=== PATIENT | male | born 1945 | race Caucasian/White ===

== ENCOUNTER 2018-06-09 20:48 | Emergency (ER) | payer OTHER ==
[~2018-06-09] VITALS: Ht 175.3 cm; Wt 83.9 kg
[2018-06-09 20:57] VITALS: BP 123/75
[2018-06-09 21:03] VITALS: BP 123/75
--- NOTE | 2018-06-09 21:03 | NUR ---
TO LOBBY A/W BED, AMBULATORY, VSS ERMD NOTED
--- NOTE | 2018-06-09 21:53 | NUR ---
PT TAKEN TO RAD FROM LOBBY
--- NOTE | 2018-06-09 22:05 | NUR ---
PT RETURN TO [facility]
--- NOTE | 2018-06-09 22:27 | NUR ---
PT TAKEN TO BED 8
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
--- NOTE | 2018-06-09 22:41 | NUR ---
Dr. Henley evaluating patient at bedside.
[2018-06-09] MEDS ORDERED: ACETAMINOPHEN EXTRA STRENGTH 500 MG TAB PO ONE (22:50)
--- NOTE | 2018-06-09 23:20 | NUR ---
Patient discharged with v/s stable. Written and verbal after care instructions given and explained. Patient verbalized understanding. Ambulatory with steady gait. All questions addressed prior to discharge. Advised to follow up with PMD.
== END 2018-06-09 23:20 | disposition home or self-care (01) ==
LOC: MED 20:48
DX: S39.012A Strain of muscle, fascia and tendon of lower back, initial encounter (principal); S16.1XXA Strain of muscle, fascia and tendon at neck level, initial encounter; I10 Essential (primary) hypertension; V89.2XXA Person injured in unspecified motor-vehicle accident, traffic, initial encounter; Y93.89 Activity, other specified; Y92.89 Other specified places as the place of occurrence of the external cause; Y99.8 Other external cause status
CPT/HCPCS: 72100; 99284

== ENCOUNTER 2019-12-03 13:46 | Inpatient (IN) | payer OTHER ==
[~2019-12-03] VITALS: Ht 180.3 cm; Wt 83.5 kg
[2019-12-03 13:52] VITALS: BP 151/80
[2019-12-03] MEDS ORDERED: ACETAMINOPHEN EXTRA STRENGTH 500 MG TAB PO ONE ×2 (13:55)
[2019-12-03] MEDS ORDERED: NACL 0.9% 1,000 ML IV ONE ×2 (13:55)
--- NOTE | 2019-12-03 14:35 | NUR ---
BIB [facility] W/ SON IN LAW C/O GEN WEAKNESS, COUGH, ABDOMINAL PAIN X 3 DAYS. SEEN BY PMD YESTERDAY FOR CXR---NO RESULT YET. HX: BPH, DM
[2019-12-03] MEDS ORDERED: DOXYCYCLINE 100 MG CAP PO SCH (14:50)
[2019-12-03] MEDS ORDERED: cefTRIAXone 2,000 MG in DEXTROSE 5% 100 ML IV ONE (14:50)
[2019-12-03 14:59] LABS: BASOPHILS % (AUTO) 0.3 % (0.0-2.0); EOSINOPHILS % (AUTO) 0.1 % (0.0-4.0); HEMATOCRIT 44.6 % (36-52); HEMOGLOBIN 14.9 g/dL (12.0-18.0); LYMPHOCYTES # (AUTO) 0.5 K/uL (2.0-11.5); LYMPHOCYTES % (AUTO) 5.3 % (20.5-51.1); MEAN CORPUSCULAR HEMOGLOBIN 30 pg (27-31); MEAN CORPUSCULAR HGB CONC 33 g/dL (33-37); MEAN CORPUSCULAR VOLUME 91.2 fL (80-94); MONOCYTES # (AUTO) 0.6 K/uL (0.8-1.0); MONOCYTES % (AUTO) 7.2 % (1.7-9.3); NEUTROPHILS # (AUTO) 7.9 K/uL (1.8-7.7); NEUTROPHILS % (AUTO) 87.1 % (42.2-75.2); PLATELET COUNT (AUTO) 276 K/uL (140-450); RED BLOOD CELL COUNT(AUTO) 4.89 MIL/uL (4.20-6.10); RED CELL DISTRIBUTION WIDTH 13.2 % (11.6-13.7); WHITE BLOOD COUNT (AUTO) 9.1 K/uL (4.8-10.8)
[2019-12-03] MEDS ORDERED: cefTRIAXone 2,000 MG VIAL ONE (15:07)
[2019-12-03 15:33] LABS: ALBUMIN 3.1 g/dL (3.4-5.0); ANION GAP 12.9 (8-16); ASPARTATE AMINOTRANSFERASE 22 U/L (15-37); CARBON DIOXIDE 25.4 mmol/L (21-32); CHLORIDE 95 mmol/L (98-107); CREATININE 0.9 mg/dL (0.6-1.3); GLUCOSE 157 mg/dL (74-106); POTASSIUM 3.3 mmol/L (3.5-5.1); SODIUM SERUM 130 mmol/L (136-145); TOTAL BILIRUBIN 0.7 mg/dL (0.0-1.0); UREA NITROGEN, BLOOD 14 mg/dL (7-18)
[2019-12-03] MEDS ORDERED: OSELTAMIVIR PHOSPHATE 75 MG CAP PO SCH (17:18)
[2019-12-03] MEDS ORDERED: ALBUTEROL 0.083% 2.5 MG/3 ML NEBU INH PRN (17:20)
[2019-12-03] MEDS ORDERED: HYDROcodone/APAP 5/325 MG 1 TAB TAB PO PRN ×2 (17:20)
[2019-12-03] MEDS ORDERED: ONDANSETRON 4 MG/2 ML VIAL IVP PRN (17:20)
[2019-12-03] MEDS ORDERED: OSELTAMIVIR PHOSPHATE 75 MG CAP PO ONE (17:20)
[2019-12-03] MEDS ORDERED: POTASSIUM CHLORIDE 10 MEQ TABER PO ONE (17:20)
[2019-12-03] MEDS ORDERED: MAG SULF 2000 MG/WATER PREMIX 50 ML IV ONE (17:40)
--- NOTE | 2019-12-03 17:45 | NUR ---
PT ARRIVED ON THE UNIT WITH 2 ER NURSES. PT IS AOX4. FAMILY ACCOMPANYING PT. PT HAS STRESS INCONTINENCE. PT HAS WET HIMSELF. PT HAS NC 2L O2. IV ON L AC 18G SL. PT IS COUGHING, DRY HACKING. PT HAS GENERALIZED WEAKNESS. TOOK HIM A LONG TIME TO TRANSFER FROM [facility] TO BED. POSITIVE FOR INFLUENZA A AND PNA. SKIN INTACT. WILL ENDORSE ADMISSION TO THE CITY TREASURER NURSE.
--- NOTE | 2019-12-03 17:55 | NUR ---
Patient will be admitted to care of Dr Rand. Admited to tele room 114. Belongings list completed. Report to WANDA Whaley.
[2019-12-03 18:00] VITALS: BP 120/69
[2019-12-03] MEDS: NACL 0.9% 1,000 ML IV SCH (18:43)
--- NOTE | 2019-12-03 19:10 | NUR ---
ENDORSED PT AND ADMISSION TO THE CITY SANITARIAN NURSE. HUNG THE IVF AND THE MAG. MRSA DONE. SPUTUM CUP GIVEN TO PT TO GIVE SAMPLE. AWAITING SAMPLE. PT IN STABLE CONDITION.
--- NOTE | 2019-12-03 19:15 | NUR ---
RECEIVED PT FROM MINOO MUÑOZ PT TURKS AND [place] ISLANDER SPEAKER AAOX4 AMBULATES WITH DIRECTOR APPAREL IV O;N LEFT AC INFUSING WELL PT WITH PRODUCTIVE COUGH, ON TELEMETRY SR INITIAL ASSESSMENT DONE
[2019-12-03 20:18] VITALS: BP 148/75
[2019-12-03] MEDS: OSELTAMIVIR PHOSPHATE 75 MG CAP PO SCH (20:46)
[2019-12-03] MEDS ORDERED: DEXTROSE 50% 50 ML SYR IVP PRN (21:00)
[2019-12-03] MEDS: BLOOD GLUCOSE MONITORING 1 DEV DEV FS SCH (21:22)
--- NOTE | 2019-12-03 21:30 | NUR ---
BLOOD SUGAR TEST 161 COVERAGE WITH 2 UNITS SUBQ HUMALOG FOLLOW PROTOCOL
[2019-12-03] MEDS: INSULIN LISPRO SLIDING SCALE 100 UNITS/ML VIAL SUBQ PRN (21:35)
--- NOTE | 2019-12-03 23:53 | NUR ---
BREATHING TS GIVEN ORDER; AND PT NOW GETTING SLEEP
[2019-12-04] VITALS: BP 147/91
[2019-12-04] MEDS: ACETAMINOPHEN 325 MG TAB PO PRN ×2 (00:30→20:36)
[2019-12-04] MEDS ORDERED: TAMS0.4C96 PO (02:37)
[2019-12-04] MEDS ORDERED: METF500T PO (02:53)
[2019-12-04] MEDS ORDERED: ASPI-1884 PO (02:53)
[2019-12-04] MEDS ORDERED: DUTASTERIDE PO (02:53)
[2019-12-04] MEDS ORDERED: OMEP20TC12 PO (02:53)
[2019-12-04] MEDS ORDERED: ORE25 PO (02:56)
[2019-12-04] MEDS ORDERED: LOSA25TA43 PO (02:56)
--- NOTE | 2019-12-04 03:26 | NUR ---
PT C/O SEVERE PARIKH. ADMINISTERED PRN PO PAIN MEDICATION ORDERED. PT TOLERATED IT WELL. PT TEACHING GIVEN, PT VERBALIZED UNDERSTANDING. WILL ENDORSE TO PRIMARY RN.
[2019-12-04 04:00] VITALS: BP 125/65
[2019-12-04] MEDS ORDERED: SYN.075 PO (04:22)
[2019-12-04] MEDS ORDERED: DUTASTERIDE 0.5 MG PO PRN (04:30)
[2019-12-04] MEDS ORDERED: NON-FORMULARY ITEM (Omeprazole (Omeprazole) 1 TAB) PO PRN (04:30)
[2019-12-04] MEDS ORDERED: HYDROCHLOROTHIAZIDE 25 MG TAB PO PRN (04:30)
--- NOTE | 2019-12-04 04:46 | NUR ---
SPONGE BATH GIVEN LINEN CHANGED ON TELE SR DENIES ANY PAIN,GETTING SLEEP
[2019-12-04] MEDS ORDERED: LEVOTHYROXINE 0.075 MG TAB ONE (05:21)
[2019-12-04] MEDS: NACL 0.9% 1,000 ML IV SCH ×2 (05:48→12:15)
[2019-12-04] MEDS: PANTOPRAZOLE 40 MG TABEC PO SCH (06:29)
[2019-12-04] MEDS ORDERED: metFORMIN 500 MG TAB PO SCH ×2 (06:30)
[2019-12-04] MEDS: LEVOTHYROXINE 0.075 MG TAB PO SCH (06:33)
[2019-12-04] MEDS: BLOOD GLUCOSE MONITORING 1 DEV DEV FS SCH ×4 (06:33→20:34)
[2019-12-04] MEDS: INSULIN LISPRO SLIDING SCALE 100 UNITS/ML VIAL SUBQ PRN ×3 (06:35→16:37)
--- NOTE | 2019-12-04 07:00 | NUR ---
PT WILL BE ENDORSED TO DAY SHIFT NURSE FOR CONTINUE OF CARE
--- NOTE | 2019-12-04 07:16 | NUR ---
RECEIVED BEDSIDE SHIFT REPORT FROM [employer] SPECIALIST NURSE FOR CONTINUATION OF CARE.
[2019-12-04 08:00] VITALS: BP 117/65
--- NOTE | 2019-12-04 08:24 | NUR ---
PATIENT HAS BEEN SCREENED AND CATEGORIZED MODERATE NUTRITION RISK. PATIENT WILL BE SEEN WITHIN 3-5 DAYS OF ADMISSION. 12/06/19 12/08/[address]
[2019-12-04] MEDS: ENOXAPARIN 40 MG/0.4 ML SYR SUBQ SCH (08:28)
[2019-12-04] MEDS: TAMSULOSIN 0.4 MG CAP PO SCH (08:30)
[2019-12-04] MEDS: OSELTAMIVIR PHOSPHATE 75 MG CAP PO SCH ×2 (08:31→20:35)
[2019-12-04] MEDS: ASPIRIN 81 MG TAB.CHEW PO SCH (08:31)
[2019-12-04] MEDS: LOSARTAN 25 MG TAB PO SCH (08:31)
--- NOTE | 2019-12-04 10:00 | NUR ---
PATIENT IS RESTING IN BED, PRODUCTIVE COUGH AND A TEMPERATURE OF 100.4. MEDICATIONS TOLERATED WELL, PATIENT REPORTS WANTING A COUGH SUPPRESSANT, MD MADE AWARE. AT BEDSIDE. ALL CONCERNS ADDRESSED AT THIS TIME. WILL CONTINUE TO MONITOR.
--- NOTE | 2019-12-04 11:45 | NUR ---
DC PLANNIN YRS OLD MALE PATIENT WAS ADMITTED FROM HOME WITH A DX OF INFLUENZA A +. PT HAS A HX OF HTN. STARTED ON OXYGEN, BREATHING TREATMENT TAMIFLU AND LEVAQUIN IV ABX PULMO CONSULT DC PLAN TO GO HOME WHEN STABLE CM TO FOLLOW. Addendum: 12/07/19 at 1507 by Veronica Mirza CM DC PLANNING PT HAS AN ORDER FOR HOME O2 O2 SAT STUDY BY RT WITH ROOM AIR IS 90% .PT NO QUALIFIED FOR HOME O2.
[2019-12-04 12:00] VITALS: BP 139/76
--- NOTE | 2019-12-04 13:00 | NUR ---
CODEINE Q6 ORDERED FOR COUGH, CHEST XRAY 2VIEW ORDERED FOR TOMORROW, CONTINUOUS PULSE OX AND CHEST PHYSIOTHERAPY ORDERED PER MD. AT BEDSIDE. BLOOD GLUCOSE COVERED FOR 170 WITH 2 UNITS OF HUMALOG INSULIN. COUGH IS PERSISTENT AND SCANT PRODUCTION OF CLEAR SPUTUM. WILL CONTINUE TO MONITOR.
--- NOTE | 2019-12-04 15:30 | NUR ---
PATIENT RESTING IN BED, ROUNDS MADE FOR SAFETY. CALL LIGHT ON AND WITHIN REACH. PATIENT IS [place]ET[place]ESE SPEAKING. EDUCATED ON THE IMPORTANCE OF REPORTING WORSENING SIGNS OF COUGH OR FEVER POSSIBLE SIGNS OF WORSENING INFECTION. WILL CONTINUE TO MONITOR.
[2019-12-04 16:00] VITALS: BP 110/56
[2019-12-04] MEDS: PROMETH/CODEINE 6.25-10MG/5ML 5 ML UDC PO PRN ×2 (16:25→21:16)
[2019-12-04] MEDS ORDERED: DEXTROSE 50% 50 ML SYR IVP PRN (17:20)
[2019-12-04] MEDS ORDERED: INSULIN LISPRO SLIDING SCALE 100 UNITS/ML VIAL SUBQ PRN (17:20)
[2019-12-04] MEDS ORDERED: LORATADINE 10 MG TAB PO SCH (17:30)
[2019-12-04] MEDS: LEVOFLOXACIN 750 MG/D5W PREMIX 150 ML IV SCH (18:00)
--- NOTE | 2019-12-04 18:19 | NUR ---
DR. CADENA MADE ROUNDS AND REPORTED SCARRING OF THE LUNGS WELL POSSIBLE PNA. LEVAQUIN STARTED PER PROTOCOL. PATIENT IS TOLERATING DINNER, COUGH IS SUPPRESSED WITH PRN MEDICATION. WILL CONTINUE TO MONITOR.
--- NOTE | 2019-12-04 19:20 | NUR ---
BEDSIDE SHIFT REPORT GIVEN TO BRACELET AND BROOCH MAKER NURSE FOR CONTINUATION OF CARE.
--- NOTE | 2019-12-04 19:21 | NUR ---
RECEIVED PT FROM AM SHIFT RNMARTHA. Dave,Dave,O 4, PATIENT IS ON BEDREST, PRODUCTIVE COUGH. PATIENT STATES HE FEELS FEVERISH. WILL CHECK THE TEMP. AT BEDSIDE. WITH Bettie Shore 18 IVF RUNNING AT ORDERED RATE. ALL CONCERNS ADDRESSED AT THIS TIME. WILL CONTINUE TO MONITOR. Addendum: 12/05/19 at 0147 by Bonnie Toussaint RN PLACED ON FALL PRECAUTIONS CALL LIGHT WITHIN REACH. WILL CONTINUE TO MONITOR
[2019-12-04 20:00] VITALS: BP 145/84
--- NOTE | 2019-12-04 20:36 | NUR ---
NOTED TO HAVE TEMP 101. 9 GIVEN TYLENOL PRN. WILL MONITOR
[2019-12-04] MEDS ORDERED: BLOOD GLUCOSE MONITORING 1 DEV DEV FS SCH (21:00)
--- NOTE | 2019-12-04 21:16 | NUR ---
PT COUGHING, RR= 22 O2 SAT 94%,PROMETHAZINE /CODEINE ADMINISTERED
--- NOTE | 2019-12-04 21:17 | NUR ---
PT SEEN AND ASSESSED. PT IS IN NO APPARENT RESPIRATORY DISTRESS AT THIS TIME; HR 93, RR 20, SPO2 OF 97% ON 3L NC, AND A COARSE BREATH SOUNDS. NO INDICATION FOR HHN PRN TX AT THIS TIME. WILL CONTINUE TO MONITOR PT.
--- NOTE | 2019-12-04 22:13 | NUR ---
CHECKED ON PATIENT, COMPLAINING THAT THE CHUX OF PATIENT IS OPEN. EXPLAINED W/ DRAGLINE ENGINEER THAT CHUX IS OPEN AND THAT WE DON'T HAVE DIAPERS. INFORMED HER THAT WE WILL FIND A WAY TO COVER THE PATIENT. PATIENT COMFORTABLE AFTER HELPING HIM.
[2019-12-05] VITALS: BP 126/69
--- NOTE | 2019-12-05 | NUR ---
CHECKED ON PATIENT, PATIENT SAID HE IS OK, TRYING TO GET SOME SLEEP.
--- NOTE | 2019-12-05 01:52 | NUR ---
CHECKED ON PATIENT, PATIENT SLEEPING AT THIS TIME. NO COMPLAINTS
--- NOTE | 2019-12-05 02:30 | NUR ---
PT AWAKE AND COUGHING HARD, CHECKED O1 SAT 92%; CALLED RT, TO CHECK ON PT.
--- NOTE | 2019-12-05 02:44 | NUR ---
XRAY CALLED RE: 2 VIEW OF CHEST. PER BEAUTY PARLOR CLEANER WILL TRY TO DO IT IN THE AM
[2019-12-05] MEDS: PROMETH/CODEINE 6.25-10MG/5ML 5 ML UDC PO PRN ×3 (03:03→17:52)
--- NOTE | 2019-12-05 03:15 | NUR ---
ADMINISTERED PHENERGAN/ CODEINE FOR COUGHING. RT SAID NO NEED FOR BREATHING TX PT IS NOT WHEEZING
[2019-12-05] MEDS: NACL 0.9% 1,000 ML IV SCH (03:23)
[2019-12-05 04:00] VITALS: BP_SYST 140; BP_SYST 153; BP_DIAS 68; BP_DIAS 81
--- NOTE | 2019-12-05 04:34 | NUR ---
PT C/O OF PAIN, GENERALIZED MILD PAIN 3/10. WILL ADMINISTER TYLENOL
[2019-12-05] MEDS: ACETAMINOPHEN 325 MG TAB PO PRN (04:35)
[2019-12-05] MEDS: PANTOPRAZOLE 40 MG TABEC PO SCH (05:51)
[2019-12-05] MEDS: LEVOTHYROXINE 0.075 MG TAB PO SCH (05:51)
[2019-12-05] MEDS: BLOOD GLUCOSE MONITORING 1 DEV DEV FS SCH ×4 (05:56→21:10)
--- NOTE | 2019-12-05 06:52 | NUR ---
PT ASLEEP BUT EASILY AWAKENED, A, O X 4, BEDREST. PT IN STABLE CONDITION AT THIS TIME
[2019-12-05 07:11] LABS: BASOPHILS % (AUTO) 0.6 % (0.0-2.0); EOSINOPHILS % (AUTO) 0.5 % (0.0-4.0); HEMATOCRIT 40.7 % (36-52); HEMOGLOBIN 13.5 g/dL (12.0-18.0); LYMPHOCYTES % (AUTO) 16.4 % (20.5-51.1); MEAN CORPUSCULAR HEMOGLOBIN 30 pg (27-31); MEAN CORPUSCULAR HGB CONC 33 g/dL (33-37); MEAN CORPUSCULAR VOLUME 91.9 fL (80-94); MONOCYTES # (AUTO) 0.7 K/uL (0.8-1.0); NEUTROPHILS # (AUTO) 4.3 K/uL (1.8-7.7); NEUTROPHILS % (AUTO) 70.5 % (42.2-75.2); PLATELET COUNT (AUTO) 229 K/uL (140-450); RED BLOOD CELL COUNT(AUTO) 4.43 MIL/uL (4.20-6.10); RED CELL DISTRIBUTION WIDTH 13.4 % (11.6-13.7); WHITE BLOOD COUNT (AUTO) 6.1 K/uL (4.8-10.8)
--- NOTE | 2019-12-05 07:15 | NUR ---
RECEIVED BEDSIDE SHIFT REPORT FROM SUPERVISOR WET END NURSE FOR CONTINUATION.
[2019-12-05 07:28] LABS: ALBUMIN 2.3 g/dL (3.4-5.0); ANION GAP 12.3 (8-16); ASPARTATE AMINOTRANSFERASE 32 U/L (15-37); CARBON DIOXIDE 25.1 mmol/L (21-32); CHLORIDE 99 mmol/L (98-107); CREATININE 0.8 mg/dL (0.6-1.3); GLUCOSE 109 mg/dL (74-106); POTASSIUM 3.4 mmol/L (3.5-5.1); SODIUM SERUM 133 mmol/L (136-145); TOTAL BILIRUBIN 0.3 mg/dL (0.0-1.0); UREA NITROGEN, BLOOD 12 mg/dL (7-18)
[2019-12-05 08:00] VITALS: BP 136/75
[2019-12-05] MEDS: ALBUTEROL SULFATE/IPRATROPIU 3 ML SOL IH PRN (08:17)
[2019-12-05] MEDS: TAMSULOSIN 0.4 MG CAP PO SCH (09:05)
[2019-12-05] MEDS: ASPIRIN 81 MG TAB.CHEW PO SCH (09:06)
[2019-12-05] MEDS: LOSARTAN 25 MG TAB PO SCH (09:06)
[2019-12-05] MEDS: LORATADINE 10 MG TAB PO SCH (09:06)
[2019-12-05] MEDS: OSELTAMIVIR PHOSPHATE 75 MG CAP PO SCH ×2 (09:06→21:00)
[2019-12-05] MEDS: ENOXAPARIN 40 MG/0.4 ML SYR SUBQ SCH (09:14)
--- NOTE | 2019-12-05 10:00 | NUR ---
MEDICATION TOLERATED WELL, VITALS ARE WNL, PATIENT DENIES PAIN AT THIS TIME. EDUCATED ON THE CALL LIGHT, VERBALIZED UNDERSTANDING. WILL CONTINUE TO MONITOR.
[2019-12-05] MEDS ORDERED: POTASSIUM CHLORIDE 10 MEQ TABER PO SCH (11:20)
[2019-12-05] MEDS: predniSONE 20 MG TAB PO SCH (11:57)
[2019-12-05 12:00] VITALS: BP 140/73
--- NOTE | 2019-12-05 14:00 | NUR ---
BLOOD SUGAR 130, NO COVERAGE NEEDED. PATIENT DENIES PAIN AT THIS TIME. VITALS ARE STABLE. INTERMITTENT COUGHING WITH BLOOD TINGED SPUTUM. WILL CONTINUE TO MONITOR.
[2019-12-05 16:00] VITALS: BP 130/80
--- NOTE | 2019-12-05 17:00 | NUR ---
COVERED FOR 230 BLOOD SUGAR WITH 4 UNITS OF HUMALOG INSULIN. PATIENT TOLERATED WELL. COUGH SUPPRESSANT MEDICATION ADMINISTERED. WILL CONTINUE TO MONITOR.
[2019-12-05] MEDS: LEVOFLOXACIN 750 MG/D5W PREMIX 150 ML IV SCH (17:52)
--- NOTE | 2019-12-05 19:25 | NUR ---
BEDSIDE SHIFT REPORT GIVEN TO DOPE MIXER NURSE FOR CONTINUATION OF CARE.
--- NOTE | 2019-12-05 19:30 | NUR ---
RECEIVED BEDSIDE REPORT FROM DAY RN. PT IS AAO X4. PT ON NC 2L O2 SAT WELL. RESPIRATIONS ARE EQUAL AND UNLABORED. SOME CRACKLES AUDIBLE. PT ON CONTACT ISOLATION FOR POSITIVE INFLUENZA A. DX PNA AND INFLUENZA A. IV ON LAC 18G IV ANTIBIOTICS INFUSING PER ORDERS. POC DISCUSSED. CALL LIGHT IS WITHIN REACH. WILL CONTINUE TO MONITOR.
[2019-12-05 20:00] VITALS: BP 111/71
--- NOTE | 2019-12-05 20:45 | NUR ---
checked up on patient. pt is on 3l nc sat 92%. hr 82. b/s were clear. pt is in no distress. will cont to monitor
--- NOTE | 2019-12-05 21:00 | NUR ---
VSS. [facility] MEDICATIONS GIVEN. BLOOD SUGAR 208 ADMINISTERED INSULIN PER SLIDING SCALE. CALL LIGHT IS WITHIN REACH. WILL CONTINUE TO MONITOR.
[2019-12-05] MEDS: INSULIN LISPRO SLIDING SCALE 100 UNITS/ML VIAL SUBQ PRN (21:06)
--- NOTE | 2019-12-05 22:34 | NUR ---
PT IS RESTING COMFORTABLY IN BED. NO S/S OF DISTRESS. CALL LIGHT IS WITHIN REACH. WILL CONTINUE TO MONITOR.
[2019-12-06] VITALS: BP 131/80
--- NOTE | 2019-12-06 | NUR ---
VITAL SIGNS ARE WITHIN NORMAL LIMITS. NO S/S OF DISTRESS. ALL NEEDS MET AT THIS TIME. CALL LIGHT IS WITHIN REACH.
--- NOTE | 2019-12-06 02:15 | NUR ---
PT IS SLEEPING COMFORTABLY IN BED. CHEST RISE AND FALL NOTED. NO S/S OF DISTRESS. CALL LIGHT IS WITHIN REACH.
[2019-12-06 04:00] VITALS: BP 116/79
--- NOTE | 2019-12-06 04:15 | NUR ---
VITAL SIGNS ARE WITHIN NORMAL LIMITS. ALL SAFETY MEASURES ARE IN PLACE. CALL LIGHT IS WITHIN REACH. WILL CONTINUE TO MONITOR.
[2019-12-06] MEDS: LEVOTHYROXINE 0.075 MG TAB PO SCH (05:48)
[2019-12-06] MEDS: PANTOPRAZOLE 40 MG TABEC PO SCH (05:48)
--- NOTE | 2019-12-06 05:48 | NUR ---
BLOOD SUGAR 94 NO COVERAGE NEEDED. DERIK MEDICATIONS GIVEN PER ORDERS. PT TOLERATED WELL. CALL LIGHT IS WITHIN REACH. WILL CONTINUE TO MONITOR.
[2019-12-06] MEDS: BLOOD GLUCOSE MONITORING 1 DEV DEV FS SCH ×4 (06:22→21:01)
--- NOTE | 2019-12-06 07:20 | NUR ---
GAVE BEDSIDE REPORT TO DAY RN. PT ENDORSED IN STABLE CONDITION.
--- NOTE | 2019-12-06 07:25 | NUR ---
RECEIVED BEDSIDE REPORT FROM NIGHTSHIFT NURSE. PT RESTING IN BED. ABLE TO MAKE NEEDS KNOWN. RESPIRATIONS EVEN AND UNLABORED WITH NO SOB OR RESPIRATORY DISTRESS. SKIN WARM AND DRY TO TOUCH. IV SITE IN LAC 18G IS CLEAN, DRY, AND INTACT. SAFETY MEASURES IN PLACE. WILL CONTINUE TO MONITOR.
[2019-12-06 07:52] LABS: BASOPHILS % (AUTO) 0.3 % (0.0-2.0); EOSINOPHILS % (AUTO) 0.4 % (0.0-4.0); HEMATOCRIT 39.1 % (36-52); HEMOGLOBIN 13.8 g/dL (12.0-18.0); LYMPHOCYTES # (AUTO) 1.3 K/uL (2.0-11.5); LYMPHOCYTES % (AUTO) 33.9 % (20.5-51.1); MEAN CORPUSCULAR HEMOGLOBIN 31 pg (27-31); MEAN CORPUSCULAR HGB CONC 35 g/dL (33-37); MEAN CORPUSCULAR VOLUME 87.3 fL (80-94); MONOCYTES # (AUTO) 0.5 K/uL (0.8-1.0); MONOCYTES % (AUTO) 13.8 % (1.7-9.3); NEUTROPHILS # (AUTO) 1.9 K/uL (1.8-7.7); NEUTROPHILS % (AUTO) 51.6 % (42.2-75.2); PLATELET COUNT (AUTO) 233 K/uL (140-450); RED BLOOD CELL COUNT(AUTO) 4.48 MIL/uL (4.20-6.10); RED CELL DISTRIBUTION WIDTH 13.3 % (11.6-13.7); WHITE BLOOD COUNT (AUTO) 3.7 K/uL (4.8-10.8)
[2019-12-06 08:00] VITALS: BP 140/80
[2019-12-06 08:05] LABS: ALBUMIN 2.4 g/dL (3.4-5.0); ANION GAP 10.8 (8-16); ASPARTATE AMINOTRANSFERASE 30 U/L (15-37); CARBON DIOXIDE 26.8 mmol/L (21-32); CHLORIDE 102 mmol/L (98-107); CREATININE 0.7 mg/dL (0.6-1.3); GLUCOSE 94 mg/dL (74-106); POTASSIUM 3.6 mmol/L (3.5-5.1); SODIUM SERUM 136 mmol/L (136-145); TOTAL BILIRUBIN 0.2 mg/dL (0.0-1.0); UREA NITROGEN, BLOOD 10 mg/dL (7-18)
[2019-12-06] MEDS: ENOXAPARIN 40 MG/0.4 ML SYR SUBQ SCH (08:48)
[2019-12-06] MEDS: TAMSULOSIN 0.4 MG CAP PO SCH (08:50)
[2019-12-06] MEDS: LORATADINE 10 MG TAB PO SCH (08:50)
[2019-12-06] MEDS: ASPIRIN 81 MG TAB.CHEW PO SCH (08:50)
[2019-12-06] MEDS: OSELTAMIVIR PHOSPHATE 75 MG CAP PO SCH ×2 (08:51→20:51)
[2019-12-06] MEDS: predniSONE 20 MG TAB PO SCH ×2 (08:51→11:18)
[2019-12-06] MEDS: LOSARTAN 25 MG TAB PO SCH (08:51)
--- NOTE | 2019-12-06 08:53 | NUR ---
ADMINISTERED SCHED MED PRESCRIBED PER MD ORDER. PT TOLERATED WELL. MEDICATION EDUCATION PERFORMED.PT VERBALIZED UNDERSTANDING
--- NOTE | 2019-12-06 10:02 | NUR ---
PT RESTING IN BED. ABLE TO MAKE NEEDS KNOWN. RESPIRATIONS EVEN AND UNLABORED WITH NO SOB OR RESPIRATORY DISTRESS. SKIN WARM AND DRY TO TOUCH. SAFETY MEASURES IN PLACE. WILL CONTINUE TO MONITOR.
--- NOTE | 2019-12-06 11:20 | NUR ---
ADMINISTERED SCHED MED PRESCRIBED PER MD ORDER. PT TOLERATED WELL. MEDICATION EDUCATION PERFORMED.PT VERBALIZED UNDERSTANDING
--- NOTE | 2019-12-06 11:30 | NUR ---
BLOOD SUGAR OBTAINED AND RESULTED IN 223. INSULIN COVERAGE WILL BE GIVEN WITH LUNCH. SAFETY MEASURES IN PLACE. WILL CONTINUE TO MONITOR.
[2019-12-06 12:00] VITALS: BP 107/54
[2019-12-06] MEDS: INSULIN LISPRO SLIDING SCALE 100 UNITS/ML VIAL SUBQ PRN ×3 (12:26→21:00)
[2019-12-06] MEDS: ACETAMINOPHEN 325 MG TAB PO PRN (12:51)
--- NOTE | 2019-12-06 12:51 | NUR ---
PT CALLED AND COMPLAINED OF A MILD HEADACHE. PRN PAIN MEDICATION ADMINISTERED PRESCRIBED PER MD ORDER. PT TOLERATED WELL. MEDICATION EDUCATION PERFORMED. PT VERBALIZED UNDERSTANDING. SAFETY MEASURES IN PLACE. WILL CONTINUE TO MONITOR
[2019-12-06 16:00] VITALS: BP 116/67
[2019-12-06] MEDS: LEVOFLOXACIN 750 MG/D5W PREMIX 150 ML IV SCH (17:25)
--- NOTE | 2019-12-06 17:36 | NUR ---
ADMINISTERED SCHED MED PRESCRIBED PER MD ORDER. PT TOLERATED WELL. MEDICATION EDUCATION PERFORMED. PT VERBALIZED UNDERSTANDING. SAFETY MEASURES IN PLACE. WILL CONTINUE TO MONITOR
--- NOTE | 2019-12-06 19:25 | NUR ---
ENDORSED TO NIGHTSHIFT NURSE. PT RESTING IN BED. ABLE TO MAKE NEEDS KNOWN. RESPIRATIONS EVEN AND UNLABORED WITH NO SOB OR RESPIRATORY DISTRESS. SKIN WARM AND DRY TO TOUCH. SAFETY MEASURES IN PLACE. PT IS STABLE.
--- NOTE | 2019-12-06 19:26 | NUR ---
RECEIVED BEDSIDE REPORT FROM DAY RN. PT IS AAO X4. PT ON NC 3L O2 SAT WELL. RESPIRATIONS ARE EQUAL AND UNLABORED. SOME CRACKLES AUDIBLE. PT ON DROPLET ISOLATION FOR POSITIVE INFLUENZA A. DX PNA AND INFLUENZA A. IV ON LAC 18G TKO. POC DISCUSSED. CALL LIGHT IS WITHIN REACH. WILL CONTINUE TO MONITOR.
[2019-12-06 20:00] VITALS: BP 116/79
--- NOTE | 2019-12-06 20:51 | NUR ---
VSS. BLOOD SUGAR 228 ADMINISTERED INSULIN PER SLIDING SCALE. DERIK MEDICATION GIVEN PER ORDERS. ALL SAFETY MEASURES ARE IN PLACE. CALL LIGHT IS WITHIN REACH. WILL CONTINUE TO MONITOR.
[2019-12-06] MEDS: ALBUTEROL SULFATE/IPRATROPIU 3 ML SOL IH PRN (21:01)
--- NOTE | 2019-12-06 21:12 | NUR ---
RECEIVED PATIENT ON NASAL CANNULA. TITRATED OXYGEN TO 2L, PULSE OX SAT 94%. PRN BREATHING TREATMENT ADMINISTERED. TOLERATED TX WELL WITHOUT ADVERSE SIDE EFFECTS. PATIENT MADE AWARE OF MEDICATION FREQUENCY AND INSTRUCTED TO CALL NEEDED FOR SOB. NO ACUTE RESPIRATORY DISTRESS NOTED AT THIS TIME. WILL CONTINUE TO MONITOR.
--- NOTE | 2019-12-06 22:45 | NUR ---
PT IS SITTING IN BED. NO S/S OF DISTRESS WITH CALL LIGHT WITHIN REACH. GAVE BEDSIDE REPORT TO ALEXANDRE. PT ENDORSED IN STABLE CONDITION.
--- NOTE | 2019-12-06 22:46 | NUR ---
RECD. RESTING IN BED COMFORTABLY, A/OX4. RESPIRATION EVEN AND UNLABORED. IV SALINE LOCK AT THE LEFT AC G 18, PATENT AND INTACT. DENIES PAIN 0/10.
--- NOTE | 2019-12-06 22:50 | NUR ---
Patient's Plan of Care was discussed and reviewed with CLEANER WINDOW: ALEXANDRE FREDERICK
[2019-12-07] VITALS: BP 148/82
[2019-12-07] MEDS: PROMETH/CODEINE 6.25-10MG/5ML 5 ML UDC PO PRN (01:54)
--- NOTE | 2019-12-07 01:54 | NUR ---
WITH PRODUCTIVE COUGH, MEDICATED WITH PHENERGAN WITH CODEINE ORDERED BY .
--- NOTE | 2019-12-07 03:00 | NUR ---
SLEEPING COMFORTABLY, NO COUGHING NOTED.
[2019-12-07 04:00] VITALS: BP 113/64
[2019-12-07] MEDS: BLOOD GLUCOSE MONITORING 1 DEV DEV FS SCH ×2 (06:16→11:58)
[2019-12-07] MEDS: LEVOTHYROXINE 0.075 MG TAB PO SCH (06:16)
[2019-12-07] MEDS: PANTOPRAZOLE 40 MG TABEC PO SCH (06:16)
--- NOTE | 2019-12-07 07:19 | NUR ---
CONDITION REMAIN STABLE. ENDORSED TO AM SHIFT NURSE FOR CONTINUITY OF CARE.
--- NOTE | 2019-12-07 07:20 | NUR ---
RECEIVED BEDSIDE REPORT FROM NIGHTSHIFT NURSE. PT RESTING IN BED UPON ARRIVAL. ABLE TO MAKE NEEDS KNOWN. RESPIRATIONS EVEN AND UNLABORED WITH NO SOB OR RESPIRATORY DISTRESS. SKIN WARM AND DRY TO TOUCH. IV SITE IN LAC 18G IS CLEAN, DRY, AND INTACT. SAFETY MEASURES IN PLACE. WILL CONTINUE TO MONITOR
[2019-12-07 07:34] LABS: BASOPHILS % (AUTO) 1.3 % (0.0-2.0); HEMATOCRIT 39.4 % (36-52); LYMPHOCYTES # (AUTO) 1.4 K/uL (2.0-11.5); LYMPHOCYTES % (AUTO) 35.1 % (20.5-51.1); MEAN CORPUSCULAR HEMOGLOBIN 31 pg (27-31); MEAN CORPUSCULAR HGB CONC 36 g/dL (33-37); MEAN CORPUSCULAR VOLUME 87.2 fL (80-94); MONOCYTES # (AUTO) 0.6 K/uL (0.8-1.0); NEUTROPHILS % (AUTO) 49.6 % (42.2-75.2); PLATELET COUNT (AUTO) 238 K/uL (140-450); RED BLOOD CELL COUNT(AUTO) 4.52 MIL/uL (4.20-6.10); RED CELL DISTRIBUTION WIDTH 13.2 % (11.6-13.7)
[2019-12-07 07:57] LABS: ALBUMIN 2.5 g/dL (3.4-5.0); ANION GAP 8.6 (8-16); ASPARTATE AMINOTRANSFERASE 72 U/L (15-37); CARBON DIOXIDE 29.8 mmol/L (21-32); CHLORIDE 103 mmol/L (98-107); CREATININE 0.8 mg/dL (0.6-1.3); GLUCOSE 110 mg/dL (74-106); POTASSIUM 3.4 mmol/L (3.5-5.1); SODIUM SERUM 138 mmol/L (136-145); TOTAL BILIRUBIN 0.2 mg/dL (0.0-1.0); UREA NITROGEN, BLOOD 16 mg/dL (7-18)
[2019-12-07 08:00] VITALS: BP 120/70
[2019-12-07] MEDS: ENOXAPARIN 40 MG/0.4 ML SYR SUBQ SCH (09:05)
[2019-12-07] MEDS: LOSARTAN 25 MG TAB PO SCH (09:06)
[2019-12-07] MEDS: OSELTAMIVIR PHOSPHATE 75 MG CAP PO SCH (09:07)
[2019-12-07] MEDS: TAMSULOSIN 0.4 MG CAP PO SCH (09:07)
[2019-12-07] MEDS: predniSONE 20 MG TAB PO SCH (09:07)
[2019-12-07] MEDS: LORATADINE 10 MG TAB PO SCH (09:07)
--- NOTE | 2019-12-07 09:07 | NUR ---
ADMINISTERED SCHED MED PRESCRIBED PER MD ORDER. PT TOLERATED WELL. MEDICATION EDUCATION PERFORMED. PT VERBALIZED UNDERSTANDING. SAFETY MEASURES IN PLACE. WILL CONTINUE TO MONITOR
[2019-12-07] MEDS: ASPIRIN 81 MG TAB.CHEW PO SCH (09:08)
[2019-12-07] MEDS ORDERED: POTASSIUM CHLORIDE 10 MEQ TABER PO SCH (11:00)
--- NOTE | 2019-12-07 11:31 | NUR ---
Late entry. Confirmed with RN that 0.9 NS IV completed at 1755 not 1315
--- NOTE | 2019-12-07 12:07 | NUR ---
PT OFF O2 FOR 20 MINUTES AND O2 SAT IS 90% WANDA BRAN NOTIFIED
[2019-12-07 13:18] VITALS: BP 136/80
--- NOTE | 2019-12-07 13:45 | NUR ---
PT RESTING IN BED UPON ARRIVAL. ABLE TO MAKE NEEDS KNOWN. RESPIRATIONS EVEN AND UNLABORED WITH NO SOB OR RESPIRATORY DISTRESS. SKIN WARM AND DRY TO TOUCH. SAFETY MEASURES IN PLACE. WILL CONTINUE TO MONITOR
--- NOTE | 2019-12-07 15:40 | NUR ---
WENT OVER DC INSTRUCTIONS WITH PT. PT SIGNED APPROPRIATE DOCUMENTS. INSTRUCTED PT TO VISIT ED FOR ANY SIGNS OF DISTRESS. PT VERBALIZED UNDERSTANDING. PT ALREADY HAD FLU VACCINE IN 09/2019 AND REFUSED PNA VACCINE. TELE MONITOR REMOVED, ID BAND REMOVED, AND INTACT IV CANNULA REMOVED. NO PRESCRIPTION OR CHANGE IN MEDS. PT GATHERED OWN BELONGINGS AND GOT DRESSED IN OWN CLOTHES. PT ESCORTED TO PRIVATE VEHICLE FOR HIM TO RETURN HOME. PT IS STABLE.
== END 2019-12-07 16:12 | disposition home or self-care (01) | DRG 871 ==
LOC: MED 13:46 → MTU 17:22
PROVIDERS: ADMIT Hospitalist; ATTEND Hospitalist
DX: A41.9 Sepsis, unspecified organism (principal); J96.01 Acute respiratory failure with hypoxia; J11.00 Influenza due to unidentified influenza virus with unspecified type of pneumonia; J18.9 Pneumonia, unspecified organism; E87.1 Hypo-osmolality and hyponatremia; I10 Essential (primary) hypertension; E11.9 Type 2 diabetes mellitus without complications; N40.0 Benign prostatic hyperplasia without lower urinary tract symptoms; E78.5 Hyperlipidemia, unspecified; Z79.84 Long term (current) use of oral hypoglycemic drugs
CPT/HCPCS: 36415; 71045; 71046; 80053; 82948; 83036; 83605; 83880; 85025; 87040; 87070; 87081; 87205; 87804; 94640; 96361; 96365; 97112; 97116; 97161-GP; 99285; J0696; J1650; J1815; J1956; J3475; J7030; J7512; J7613; Q0092

== ENCOUNTER 2024-05-07 14:47 | Emergency (ER) | payer OTHER ==
[~2024-05-07] VITALS: Ht 175.3 cm; Wt 88.5 kg
[~2024-05-07 14:47] MED LIST: ACT30 PO; ASCO500T95 PO; ASPI-1749 PO; ATOR10TA51 PO; AZIT250T4 PO; DEC4 PO; LOSA25TA43 PO; METF-346 PO; ZINC100T8 PO
[2024-05-07 14:55] VITALS: BP 133/74; PULSE 99; RESP 18; TEMP 98.1; O2SAT 95
[2024-05-07 15:30] VITALS: O2SAT 97
[2024-05-07 15:34] LABS: APPEARANCE,URINE CLEAR (CLEAR); BILIRUBIN,URINE NEGATIVE (NEGATIVE); BLOOD, URINE NEGATIVE (NEGATIVE); COLOR,URINE YELLOW (YELLOW); LEUKOCYTE ESTERASE ,URINE NEGATIVE (NEGATIVE); NITRITE, URINE NEGATIVE (NEGATIVE); PROTEIN,URINE NEGATIVE (NEGATIVE); UGLUCOSE 3+ (NEGATIVE); UROBILINOGEN,URINE 0.2 EU/dL (0.2 - 1)
[2024-05-07 15:44] LABS: BASOPHILS % (AUTO) 0.6 % (0.0-2.0); EOSINOPHILS # (AUTO) 0.1 K/uL (0-0.4); EOSINOPHILS % (AUTO) 1.3 % (0.0-4.0); HEMATOCRIT 42.1 % (36-52); HEMOGLOBIN 14.2 g/dL (12.0-18.0); LYMPHOCYTES # (AUTO) 1.9 K/uL (2.0-11.5); LYMPHOCYTES % (AUTO) 24.9 % (20.5-51.1); MEAN CORPUSCULAR HEMOGLOBIN 31 pg (27-31); MEAN CORPUSCULAR HGB CONC 34 g/dL (33-37); MEAN CORPUSCULAR VOLUME 92.4 fL (80-94); MONOCYTES # (AUTO) 0.7 K/uL (0.8-1.0); MONOCYTES % (AUTO) 8.7 % (1.7-9.3); NEUTROPHILS % (AUTO) 64.5 % (42.2-75.2); PLATELET COUNT (AUTO) 260 K/uL (140-450); RED BLOOD CELL COUNT(AUTO) 4.55 MIL/uL (4.20-6.10); RED CELL DISTRIBUTION WIDTH 14.8 % (11.6-13.7); WHITE BLOOD COUNT (AUTO) 7.7 K/uL (4.8-10.8)
[2024-05-07 15:55] LABS: ANION GAP 14.6 (8-16); CALCIUM 9.3 mg/dL (8.5-10.1); CARBON DIOXIDE 24.3 mmol/L (21-32); CHLORIDE 100 mmol/L (98-107); GLUCOSE 199 mg/dL (74-106); POTASSIUM 3.9 mmol/L (3.5-5.1); SODIUM SERUM 135 mmol/L (136-145); UREA NITROGEN, BLOOD 21 mg/dL (7-18)
[2024-05-07 16:02] LABS: ALBUMIN 3.7 g/dL (3.4-5.0); BILIRUBIN,DIRECT 0.1 mg/dL (0.0-0.3); TOTAL BILIRUBIN 0.5 mg/dL (0.0-1.0); TOTAL PROTEIN, SERUM 8.1 g/dL (6.4-8.2)
[2024-05-07 16:50] VITALS: BP 137/78; PULSE 97; RESP 18; TEMP 98.2; O2SAT 96
[2024-05-07] MEDS ORDERED: AZIT250T4 PO (17:25)
[2024-05-07] MEDS ORDERED: AMOX1TAB8 PO (17:25)
== END 2024-05-07 17:38 | disposition home or self-care (01) ==
LOC: MED 14:47
DX: J18.9 Pneumonia, unspecified organism (principal); R10.12 Left upper quadrant pain; E11.9 Type 2 diabetes mellitus without complications; K21.9 Gastro-esophageal reflux disease without esophagitis; I10 Essential (primary) hypertension; Z86.39 Personal history of other endocrine, nutritional and metabolic disease; Z79.899 Other long term (current) drug therapy; Z79.82 Long term (current) use of aspirin
CPT/HCPCS: 36415; 80048; 80076; 81003; 83690; 85025; 99284